=== PATIENT | male | born 1995 | race American Indian/Alaskan Native ===

== ENCOUNTER 2021-10-23 09:26 | Emergency (ER) | payer SELFPAY ==
[2021-10-23 09:31] VITALS: BP 108/65
--- NOTE | 2021-10-23 11:37 | Emergency Department Report ---
Minor Respiratory - [facility] Chief Complaint: Weakness Stated Complaint: BODY ACHES Time Seen by Provider: 10/23/21 11:12 Duration: 2 Days Minor Respiratory: Yes Able to Tolerate Fluids, Yes Cough, No Rhinorrhea, No Sore Throat, No Shortness of Breath, No Fever Other History: 25-year-old -[place] Citizen male presents to the emergency room complaining of 1 day history of headache body aches sweats and slight cough. Patient is not vaccinated for Covid and has not been tested. Patient states he just started wearing a mask yesterday. States that he did not take anything for his symptoms no Tylenol or ibuprofen. ED Review of Systems ROS: Stated complaint: BODY ACHES Other details as noted in HPI ED Past Medical Hx - Past Medical History Previous Medical History?: No - Surgical History Past Surgical History?: No Minor Respiratory Exam - Exam General: Vital signs noted. No distress. Alert and acting appropriately. HEENT: Yes Moist Mucous Membranes, No Pharyngeal Erythema, No Pharyngeal Exudates, No Rhinorrhea, No Conjuctival Injection, No Frontal Tenderness, No Maxillary Tenderness Ear: Neither EAC Pain, Neither EAC Discharge Neck: Yes Supple, No Adenopathy Lungs: Yes Good Air Exchange, No Wheezes, No Ronchi, No Stridor, No Cough, No Labored Respirations, No Retractions, No Use of Accessory Muscles, No Other Abnormal Lung Sounds Heart: Yes Regular, No Murmur Abdomen: Yes Normal Bowel Sounds, No Tenderness, No Peritoneal Signs Skin: No Rash, No Edema Neurologic: Alert and oriented, no deficits. Musculoskeletal: Unremarkable. ED Course Vital Signs 10/23/21 09:28 Temperature 98.6 F Pulse Rate 84 Respiratory 16 Rate Blood Pressure 108/65 [Left] O2 Sat by Pulse 98 Oximetry ED Medical Decision Making - Medical Decision Making 25-year-old -[place] Citizen male presents to the emergency room complaining of 1 day history of headache body aches sweats and slight cough. Patient is not vaccinated for Covid and has not been tested. Patient states he just started wearing a mask yesterday. States that he did not take anything for his symptoms no Tylenol or ibuprofen. Discussed with patient needs to get Covid tested. He can treat his symptoms such as Tylenol or ibuprofen for body aches [id number] cough medication for cough nasal congestion. Increase his water intake advance his diet as tolerated. Critical care attestation.: If time is entered above; I have spent that time in minutes in the direct care of this critically ill patient, excluding procedure time. ED Disposition Clinical Impression: Suspected COVID-19 virus infection Disposition: HOME / SELF CARE / HOMELESS Is pt being admited?: No Does the pt Need Aspirin: No Condition: Stable Instructions: COVID-19 Frequently Asked Questions, COVID-19: How to Protect Yourself and Others - [facility], Prevent the Spread of COVID-19 if You Are Sick - [facility] Additional Instructions: Your symptoms appear most consistent with a nonspecific viral syndrome. However, given this current pandemic, COVID-19 is in the differential of possibilities. I do recommend outpatient Covid 19 testing. In the meantime, isolate/quarantine yourself and stay away from anyone who is elderly, immunocompromised or chronically ill. You can use ibuprofen every 6-8 hours and Tylenol every 4-8 hours, using the dosing on the back of the bottle, as needed for any fever or body aches. Return to the emergency department with any worsen ing of your symptoms, development of chest pain or shortness of breath, or with any acute distress. Referrals: PRIMARY CARE [Primary Care Provider] - 3-5 Days Forms: Work/School Release Form(ED) Time of Disposition: 11:30
== END 2021-10-23 11:42 | disposition home or self-care (01) ==
LOC: ED 09:26
DX: R51.9 Headache, unspecified (principal); R05.9 Cough, unspecified; M79.18 Myalgia, other site; Z20.822 Contact with and (suspected) exposure to COVID-19
CPT/HCPCS: 99282